=== PATIENT | female | born 1980 | race Caucasian/White ===

== ENCOUNTER 2020-03-01 11:03 | Outpatient (CLI) | payer BC, SELFPAY ==
--- NOTE | ~2020-03-01 | US_ITS ---
EXAMINATION: US thyroid EXAM DATE: 03/01/2020 11:57 INDICATION: Subsequent visit for known closed fracture(s) follow-up of the thyroid nodule follow-up. TECHNIQUE: Multiple grayscale and Doppler images of the thyroid were obtained (by a technologist who performed the scan) and subsequently reviewed. Individual nodules and recommendations may be reporte d in accordance with TI-RADS system as designated by the 2017 ACR White Paper TI-RADS committee. Comp arison is made to prior examination from 02/10/2019. FINDINGS: The right thyroid lobe measures 4.4 x 1.6 x 1.3 cm, the left measuring 4.8 x 1.7 x 1.4 cm. Again, the largest nodule identified is in the left thyroid lobe, today measuring 1.4 x 1.3 x 0.6 centimeters, almost entirely cystic, hypoechoic (2 points), wider than tall, smooth margin, without echogenic foci , category TR4 for this nodule. Dimensions provided on prior study at 1.7 x 0.9 x 0.5 cm. Compared t o prior study, there has been development of more cystic component. IMPRESSION: Mildly enlarged thyroid with scattered small nodules, most likely benign. Consider one-ye ar follow-up thyroid ultrasound. Reviewed, dictated and finalized at location A. IMPRESSION: Mildly enlarged thyroid with scattered small nodules, most likely b enign. Consider one-year follow-up thyroid ultrasound.
== END 2020-03-01 11:04 | disposition home or self-care (01) ==
PROVIDERS: PCP Internal Medicine
DX: E04.1 Nontoxic single thyroid nodule (principal)
CPT/HCPCS: 76536

== ENCOUNTER 2020-05-23 09:16 | Emergency (ER) | payer BC, SELFPAY ==
--- NOTE | ~2020-05-23 | XR_ITS ---
EXAMINATION: XR knee RT min 4V EXAM DATE: 05/23/2020 10:06 INDICATION: Initial encounter following injury, with pain of the right knee. Pain with weightbearing after fall 2 days ago. TECHNIQUE: Right knee lateral, frontal AP, frontal PA tunnel, sunrise projections. There is no prior study for comparison. FINDINGS: No evidence osteochondral defect or joint body in the right knee joint. There are no acut e fractures or dislocations identified. There is no subcutaneous gas. The soft tissue is unremarkab le. There are no radiopaque foreign bodies. No joint effusion. IMPRESSION: 1. XR knee RT min 4V exam without acute osseous findings. Reviewed, dictated and finalized at location A.
--- NOTE | ~2020-05-23 | XR_ITS ---
EXAMINATION: XR knee LT min 4V EXAM DATE: 05/23/2020 10:06 INDICATION: Initial encounter following injury, with pain of the left knee. TECHNIQUE: Left knee lateral, frontal AP, frontal PA tunnel, sunrise projections. There is no prior study for comparison. FINDINGS: No evidence osteochondral defect or joint body in the left knee joint. There are no acute fractures or dislocations identified. There is no subcutaneous gas. The soft tissue is unremarkabl e. There are no radiopaque foreign bodies. No joint effusion. IMPRESSION: 1. XR knee LT min 4V exam without acute osseous findings. Reviewed, dictated and finalized at location A.
[2020-05-23 09:33] VITALS: BP 135/91; PULSE 102; RESP 16; TEMP 36.8; O2SAT 100
--- NOTE | 2020-05-23 10:35 | ED.LOWEXIN ---
HPI - Extremity Injury (Lower) General Chief Complaint: Extremity Injury, Lower <Betrrand Vela PA-C - Last Filed: 05/23/20 10:40> Stated Complaint: FELL AND INJURED KNEES <Bertrand Vela PA-C - Last Filed: 05/23/20 10:40> Time Seen by Provider: 05/23/20 10:04 <Bertrand Vela PA-C - Last Filed: 05/23/20 10:40> Source: patient <Betrrand Vela PA-C - Last Filed: 05/23/20 10:40> Mode of arrival: ambulatory <Bertrand Vela PA-C - Last Filed: 05/23/20 10:40> Limitations: no limitations <Bertrand Vela PA-C - Last Filed: 05/23/20 10:40> History of Present Illness HPI Narrative: Patient is a 39-year-old female who presents with bilateral medial knee pain after having her knees go out on her when she slipped on a wet floor notes moderate aching pain to the inner left knee mild pain to the right knee has been able to bear weight has crutches at home denies other injuries or complaints is currently breast-feeding taking Tylenol and ibuprofen with some relief. <Bertrand Vela PA-C - Last Filed: 05/23/20 10:40> Related Data Home Medications: Home Medications Medication Instructions Recorded Confirmed sulfasalazine 0.5 g PO DAILY 05/23/20 05/23/20 <Bertrand Vela PA-C - Last Filed: 05/23/20 10:40> Allergies/Adverse Reactions: Allergies Allergy/AdvReac Type Severity Reaction Status Date / Time No Known Allergies Allergy Verified 05/23/20 09:36 <Bertrand Vela PA-C - Last Filed: 05/23/20 10:40> Review of Systems Review of Systems: All systems reviewed & are unremarkable except as noted in HPI and below <Bertrand Vela PA-C - Last Filed: 05/23/20 10:40> PMFSH Past Medical History Medical History: Medical History (Updated 05/23/20 @ 10:39 by Bertrand Vela PA-C) Obese <Bertrand Vela PA-C - Last Filed: 05/23/20 10:40> Surgical History Surgical History: Surgical History (Updated 05/23/20 @ 10:36 by Bertrand Vela PA-C) History of section <Bertrand Vela PA-C - Last Filed: 05/23/20 10:40> Social History Social History: Social History (Updated 05/23/20 @ 10:36 by Bertrnad Vela PA-C) Smoking status: Never smoker <Bertrand Vela PA-C - Last Filed: 05/23/20 10:40> Exam Narrative: Exam Narrative: GENERAL: Well-appearing, well-nourished, and in no acute distress. HEAD: Normocephalic, atraumatic. EYES: PERRLA and EOMI. ENT: Nares clear, no rhinorrhea or epistaxis. Mucous membranes moist. EXTREMITIES: Normal range of motion. No edema. Tenderness of the medial knees bilaterally no deformities noted SKIN: Warm, dry, no rash. NEURO: No focal deficits. Alert and oriented x3. Neurovascularly intact PSYCH: Normal mood and affect. <Bertrand Vela PA-C - Last Filed: 05/23/20 10:40> Course Course Emergency Course: Patient in the room aware of case findings treatment plan and diagnosis <Bertrand Vela PA-C - Last Filed: 05/23/20 10:40> Vital Signs Vital signs: Vital Signs Temperature 98.2 F 05/23/20 09:33 Pulse Rate 102 H 05/23/20 09:33 Respiratory Rate 16 05/23/20 09:33 Blood Pressure 135/91 H 05/23/20 09:33 Pulse Oximetry 100 05/23/20 09:33 Temperature 98.2 F 05/23/20 09:33 Pulse Rate 102 H 05/23/20 09:33 Respiratory Rate 16 05/23/20 09:33 Blood Pressure 135/91 H 05/23/20 09:33 Pulse Oximetry 100 05/23/20 09:33 <Bertrand Vela PA-C - Last Filed: 05/23/20 10:40> Vital Signs Temperature 98.2 F 05/23/20 09:33 Pulse Rate 102 H 05/23/20 09:33 Respiratory Rate 16 05/23/20 09:33 Blood Pressure 135/91 H 05/23/20 09:33 Pulse Oximetry 100 05/23/20 09:33 Temperature 98.2 F 05/23/20 09:33 Pulse Rate 102 H 05/23/20 09:33 Respiratory Rate 16 05/23/20 09:33 Blood Pressure 135/91 H 05/23/20 09:33 Pulse Oximetry 100 05/23/20 09:33 <Cielo Barlow MD - Last Filed: 05/23/20 11:36> MDM - Extrem
== END 2020-05-23 10:49 | disposition home or self-care (01) ==
PROVIDERS: Emergency Provider Emergency Medicine; PCP Internal Medicine
DX: S83.92XA Sprain of unspecified site of left knee, initial encounter (principal); S83.91XA Sprain of unspecified site of right knee, initial encounter; E66.9 Obesity, unspecified; Z68.38 Body mass index [BMI] 38.0-38.9, adult; W01.0XXA Fall on same level from slipping, tripping and stumbling without subsequent striking against object, initial encounter
CPT/HCPCS: 73564; 99284

== ENCOUNTER → 2020-09-20 17:58 | Outpatient (CLI) | payer BC, SELFPAY ==
--- NOTE | ~2020-09-20 | MM_ITS ---
EXAMINATION: MM screening nayan BI w ole HISTORY: Screening mammogram TECHNIQUE: Craniocaudal and mediolateral oblique 3-D tomosynthesis images were obtained and synthetic 2-D images were generated. CAD analysis was submitted and interpreted. COMPARISON: None BREAST PARENCHYMAL COMPOSITION: There are scattered areas of fibroglandular density. FINDINGS: There is a focal asymmetry in the inner mid right breast. Diagnostic right mammogram and ri ght breast ultrasound examination are recommended. No suspicious mass, architectural distortion, malignant calcification, skin thickening or retraction of either breast is noted otherwise.. IMPRESSION: 1. Asymmetry in the the inner mid right breast 2. Diagnostic right mammogram and right breast ultrasound examination are recommended. BI-RADS Category 0: Incomplete: Needs additional imaging evaluation. Reviewed, dictated and finalized at location A. RD BOUND DIRECTOR IMPRESSION: 1. Asymmetry in the the inner mid right breast 2. Diagnostic right mammogram and right breast ultrasound examination are recom mended. BI-RADS Category 0: Incomplete: Needs additional imaging evaluation.
== END ==
PROVIDERS: PCP Internal Medicine; Visit Provider Internal Medicine
DX: Z12.31 Encounter for screening mammogram for malignant neoplasm of breast (principal); R92.8 Other abnormal and inconclusive findings on diagnostic imaging of breast
CPT/HCPCS: 77063; 77067

== ENCOUNTER → 2020-11-09 09:16 | Outpatient (CLI) | payer BC, SELFPAY ==
--- NOTE | ~2020-11-09 | MMUS_ITS ---
EXAMINATION: MM diagnostic nayan RT w ole, US breast RT complete HISTORY: Follow-up right breast asymmetry TECHNIQUE: Additional 3-D tomosynthesis images of the right breast were performed and synthetic 2-D i mages were generated. CAD analysis was submitted and interpreted. High resolution right breast ultras ound was performed. COMPARISON: 09/20/2020 BREAST PARENCHYMAL COMPOSITION: The breasts are heterogenously dense, which may obscure small masses. FINDINGS: MAMMOGRAPHIC FINDINGS: There are no suspicious masses, calcifications or architectural distortion in the right breast with s pot compression and mediolateral views. ULTRASOUND: Complete left breast ultrasound including all 4 quadrants in the subareolar location demonstrates nor mal heterogeneous echotexture without focal solid or cystic mass. IMPRESSION: 1. No mammographic or sonographic evidence for malignancy. 2. Routine yearly screening mammogram and regular clinical breast examination are recommended. BI-RADS Category 1: Negative Reviewed, dictated and finalized at location A. MATIC BUFFER IMPRESSION: 1. No mammographic or sonographic evidence for malignancy. 2. Routine yearly screening mammogram and regular clinical breast examination a re recommended. BI-RADS Category 1: Negative
== END ==
PROVIDERS: PCP Internal Medicine; Visit Provider Internal Medicine
DX: R92.8 Other abnormal and inconclusive findings on diagnostic imaging of breast (principal)
CPT/HCPCS: 76641; 77061; 77065; G0279

== ENCOUNTER → 2021-03-03 14:25 | Outpatient (CLI) | payer BC, SELFPAY ==
--- NOTE | ~2021-03-03 | US_ITS ---
EXAMINATION: US thyroid EXAM DATE: 03/03/2021 14:50 INDICATION: Thyroid nodule . TECHNIQUE: Multiple grayscale and Doppler images of the thyroid were obtained (by a technologist who performed the scan) and subsequently reviewed. Individual nodules and recommendations may be reporte d in accordance with TI-RADS system as designated by the 2017 ACR White Paper TI-RADS committee. Comp munira is made to prior examination from 11/24/2015. FINDINGS: The right thyroid lobe measures 5.0 x 1.6 x 1.7 cm, the left measuring 4.3 x 1.1 x 1.5 cm. Mildly dif fusely heterogeneous thyroid echogenicity with low vascularity. There are scattered subcentimeter thy roid nodules, largest identified today in the left thyroid lobe at 7 mm. These do not appear signific ant changed and are not likely clinically significant. IMPRESSION: 1. Stable small thyroid nodules, not likely clinically significant. Return to clinical follow-up and if palpable abnormality develops a repeat ultrasound can be obtained . Reviewed, dictated and finalized at location B. IMPRESSION: 1. Stable small thyroid nodules, not likely clinically significant. Return to clinical follow-up and if palpable abnormality develops a repeat ultr asound can be obtained.
== END ==
PROVIDERS: Visit Provider Surgery
DX: E04.2 Nontoxic multinodular goiter (principal)
CPT/HCPCS: 76536